=== PATIENT | male | born 2000 | race Hispanic/Latino ===

== ENCOUNTER 2021-10-25 10:10 | Outpatient (CLI) | payer OTHER | END 2021-10-25 10:11 | disposition home or self-care (01) | LOC: BICRAD 10:10 | PROVIDERS: ATTEND Family Medicine | DX: S72.002D Fracture of unspecified part of neck of left femur, subsequent encounter for closed fracture with routine healing (principal); M25.552 Pain in left hip | CPT/HCPCS: 72170 ==